=== PATIENT | female | born 1980 | race Caucasian/White ===

== ENCOUNTER 2016-03-11 08:00 | Outpatient (CLI) | payer OTHER | END 2016-03-11 23:59 | disposition home or self-care (01) | DX: Z11.3 Encounter for screening for infections with a predominantly sexual mode of transmission (principal) ==

== ENCOUNTER 2016-03-11 08:00 | Outpatient (CLI) | payer OTHER | END 2016-03-11 08:01 | disposition home or self-care (01) | DX: Z36 Encounter for antenatal screening of mother (principal); E03.8 Other specified hypothyroidism ==

== ENCOUNTER 2016-04-24 04:11 | Emergency (ER) | payer OTHER ==
[2016-04-24] MEDS ORDERED: POTASSIUM BICARB 25 MEQ TABLET PO STA (05:41)
[2016-04-24] MEDS ORDERED: POTASSIUM BICARB 25 MEQ TABLET PO ONE (05:43)
== END 2016-04-24 06:02 | disposition home or self-care (01) ==
DX: O99.89 Other specified diseases and conditions complicating pregnancy, childbirth and the puerperium (principal); R07.89 Other chest pain; Z3A.11 11 weeks gestation of pregnancy
CPT/HCPCS: 36415; 80053; 81001; 83690; 84484; 85025; 85379; 99283; 99284; A9270